=== PATIENT | female | born 1965 | race Caucasian/White ===

== ENCOUNTER 2023-09-19 12:04 | Emergency (ER) | payer OTHER ==
[2023-09-19] MEDS ORDERED: MORPHINE 4 MG/ML SYR ONE (12:53)
[2023-09-19] MEDS ORDERED: ONDANSETRON 4 MG (ODT) TAB ONE (12:53)
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
[2023-09-19 14:54] LABS: Absolute Eosinophils 0.1 K/uL (0-0.5); Absolute Lymphocytes (CBC) 1.4 K/uL (0.7-4.9); Absolute Monocytes 0.5 K/uL (0.1-1.3); Basophils % 0.3 % (0-1.3); Eosinophils % 0.8 % (0-4.4); Hematocrit 40.3 % (36.0-45.0); Lymphocytes % 12.9 % (15.3-44.8); MCH 29.1 pg (27.0-35.0); MCHC 32.3 g/dL (32.0-36.0); MCV 89.9 fL (80-100); MPV 9.2 fL (7.6-11.3); Monocytes % 4.4 % (3.3-12.3); Neutrophils % 81.6 % (41.7-73.7); Platelets 191 thou/uL (152-406); RBC Red Blood Cell Count 4.49 M/uL (3.86-4.86); Red Cell Distribution Width 13.2 % (12.1-15.2)
[2023-09-19] MEDS ORDERED: HYDROMORPHONE HCL 1 MG/ML INJ ONE (14:56)
[2023-09-19 14:58] LABS: PT Prothrombin Time 11.5 SECONDS (9.5-12.5); Protime INR 1.05
[2023-09-19 15:14] LABS: ALT/SGPT 36 U/L (13-56); AST/SGOT 17 U/L (15-37); Albumin 4.3 g/dL (3.4-5.0); Albumin/Globulin Ratio 1.4 (1.1-1.8); Alkaline Phosphatase 69 U/L (45-117); Anion Gap 4.7 mEq/L (5.0-15.0); BUN Blood Urea Nitrogen 8 mg/dL (7-18); Bicarbonate 26 mEq/L (21-32); Bilirubin Direct 0.2 mg/dL (0-0.2); Bilirubin Indirect, Calculated 0.6 mg/dL (0.2-0.8); Bilirubin Total 0.8 mg/dL (0.2-1.0); Glomerular Filtration Rate 83 ml/min (=/>90); Glucose Level 97 mg/dL (74-106); Magnesium 2.1 mg/dL (1.6-2.4); NT PRO-BNP 43 pg/mL (<125); Potassium 3.7 mEq/L (3.5-5.1); Protein, Total 7.3 g/dL (6.4-8.2); Sodium Level 136 mEq/L (136-145)
[2023-09-19 15:15] LABS: Troponin High Sensitivity < 3.0 pg/mL (<58.9)
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
[2023-09-19 17:02] VITALS: TEMP 97.9
[2023-09-19 17:34] VITALS: BP 109/65; O2SAT 95
--- NOTE | 2023-09-20 14:01 | EKG ---
Test Date: 2023-09-19 Test Time: 15:16:37 Mingle Operator: JOSE MEASUREMENT RESULTS: Intervals: Rate: 97 OK: 150 QRSD: 84 QT: 376 QTc: 477 [place]: P: 52 OK: 150 QRS: -16 T: 21 INTERPRETIVE STATEMENTS: Normal sinus rhythm Possible Left atrial enlargement Left ventricular hypertrophy Nonspecific ST abnormality Abnormal ECG Compared to ECG 08/11/2011 08:20:26 Left ventricular hypertrophy now present ST (T wave) deviation now present Myocardial infarct finding no longer present Electronically Signed On 09-20-23 13:58:40 CDT by Celso Montoya
== END 2023-09-19 16:35 | disposition home or self-care (01) ==
LOC: ER 12:04
DX: M54.50 Low back pain, unspecified (principal); R07.81 Pleurodynia; R07.9 Chest pain, unspecified; V44.5XXA Car driver injured in collision with heavy transport vehicle or bus in traffic accident, initial encounter; Z88.1 Allergy status to other antibiotic agents; Z88.2 Allergy status to sulfonamides; Z88.3 Allergy status to other anti-infective agents; Z88.5 Allergy status to narcotic agent; Z88.6 Allergy status to analgesic agent; Z91.040 Latex allergy status
CPT/HCPCS: 93005; 85025; 80048; 36415; 83735; 85610; 80076; 84484; 83880; 70450; 71250; 72125; 71045; 96372; 96374; 99285; Q0162; J1170